=== PATIENT | male | born 1985 | race Caucasian/White ===

== ENCOUNTER 2019-06-23 22:38 | Emergency (ER) | payer MEDICAID, OTHER, SELFPAY ==
[~2019-06-23] VITALS: Ht 188 cm; Wt 98.6 kg
[2019-06-23 22:44] VITALS: BP 145/87
--- NOTE | 2019-06-23 22:53 | NUR ---
PT WITH LESIONS TO VARIOUS PARTS OF THE BODY FOR VARIOUS AMOUNTS OF TIME.
--- NOTE | 2019-06-23 23:01 | NUR ---
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 PT HAS MULTIPLE OPEN WOUNDS. CONTACT PRECAUTIONS IN PLACE.
[2019-06-23] MEDS ORDERED: DIPH,PERTUSS(ACELL),TET VAC/PF 0.5 ML IM-VACC ONE (23:30)
[2019-06-23] MEDS ORDERED: LIDOCAINE-MPF 1%, 5ML ONE (23:47)
[2019-06-23] MEDS ORDERED: NEOSPORIN OINT. PKT 1 PACKET ONE (23:55)
[2019-06-24] MEDS ORDERED: IBUPROFEN 600 MG TABLET PO ONE
[2019-06-24] MEDS ORDERED: LIDOCAINE-MPF 1%, 5ML INFIL ONE
[2019-06-24] MEDS ORDERED: DIPH,PERTUSS(ACELL),TET VAC/PF 0.5 ML IM-VACC ONE (00:13)
== END 2019-06-24 00:18 | disposition home or self-care (01) ==
LOC: ED 06-24 00:10
DX: L02.415 Cutaneous abscess of right lower limb (principal); B35.4 Tinea corporis; L72.3 Sebaceous cyst; F15.10 Other stimulant abuse, uncomplicated; F17.210 Nicotine dependence, cigarettes, uncomplicated; F11.10 Opioid abuse, uncomplicated; Y90.9 Presence of alcohol in blood, level not specified
CPT/HCPCS: 10060; 90471; 90715; 99283

== ENCOUNTER 2019-11-23 16:53 | Emergency (ER) | payer MEDICAID, OTHER ==
[~2019-11-23] VITALS: Ht 188 cm; Wt 97.1 kg
[2019-11-23 16:57] VITALS: BP 108/65
--- NOTE | 2019-11-23 19:16 | NUR ---
GERSONX1
--- NOTE | 2019-11-23 20:10 | NUR ---
NILX2
--- NOTE | 2019-11-23 20:19 | NUR ---
not in lobby
== END 2019-11-23 20:31 | disposition left against medical advice (07) ==
LOC: ED 17:00
DX: R07.89 Other chest pain (principal); Z53.21 Procedure and treatment not carried out due to patient leaving prior to being seen by health care provider
CPT/HCPCS: 93005; 99283

== ENCOUNTER 2020-01-12 14:12 | Emergency (ER) | payer OTHER ==
[~2020-01-12] VITALS: Ht 188 cm; Wt 96.1 kg
[2020-01-12] MEDS ORDERED: VANCOMYCIN PER PHARMACY MC ONE (15:00)
[2020-01-12] MEDS ORDERED: SODIUM CHLORIDE 0.9% 1,000ML IVBOLUS ONE (15:00)
[2020-01-12] MEDS ORDERED: VANCOMYCIN 2,400 MG in SODIUM CHLORIDE 0.9% 500 ML IV ONE (15:00)
[2020-01-12 15:13] LABS: BASOPHILS # (AUTO) 0.07 x10^3/uL (0-0.1); BASOPHILS % (AUTO) 1 % (0-1); EOSINOPHILS # (AUTO) 0.12 x10^3/uL (0-0.4); EOSINOPHILS % (AUTO) 1 % (1-7); LYMPHOCYTES # (AUTO) 1.26 x10^3/uL (1-3.4); LYMPHOCYTES % (AUTO) 8 % (22-44); MD NO; MEAN CORPUSCULAR HEMOGLOBIN 31.3 pg (27.5-34.5); MEAN CORPUSCULAR HGB CONC 34.4 g/dL (33.2-36.2); MEAN CORPUSCULAR VOLUME 91.1 fL (81-97); MEAN PLATELET VOLUME 7.2 fL (7.4-10.4); MONOCYTES # (AUTO) 0.88 x10^3/uL (0.2-0.8); MONOCYTES % (AUTO) 6 % (2-9); NEUTROPHILS # (AUTO) 12.64 x10^3/uL (1.8-6.8); NEUTROPHILS % (AUTO) 85 % (42-75); PLATELET COUNT 239 x10^3/uL (130-400); RED BLOOD COUNT 4.71 x10^6/uL (4.38-5.82); RED CELL DISTRIBUTION WIDTH 13.6 % (9.4-14.8)
[2020-01-12 15:20] LABS: ALBUMIN 3.3 g/dL (3.4-5.0); ANION GAP 13 mmol/L (5-15); CALCIUM 8.4 mg/dL (8.5-10.1); CHLORIDE 105 mmol/L (98-107)
[2020-01-12 15:23] LABS: ALANINE AMINOTRANSFERASE 47 U/L (12-78); ALKALINE PHOSPHATASE 77 U/L (45-117); BILIRUBIN,TOTAL 0.6 mg/dL (0.2-1.0); CREATININE 0.91 mg/dL (0.7-1.3); TOTAL PROTEIN 7.1 g/dL (6.4-8.2)
[2020-01-12 15:32] VITALS: BP 130/75
--- NOTE | 2020-01-12 15:36 | NUR ---
PT MEDICATED ORDRED WITH REINIERO. WAITING FOR LANBS PT AWARE [facility] TAKES 2 HOURS TO INFUSE. PT REQUESTING FOOD AND DR. LINDSAY AWARE.
--- NOTE | 2020-01-12 16:20 | NUR ---
PT GIVEN MEATRAY. WAITING FOR [facility] TO INFUSE THEN PT WILL BE DISCHARGED HOME.
--- NOTE | 2020-01-12 16:51 | NUR ---
REPORT TO [facility].
--- NOTE | 2020-01-12 17:17 | NUR ---
PT WAS NOT IN ROOM WHEN AIRPLANE TESTER WENT TO CHECK ON PT, NO SIGN OF IV CATH IN ROOM. PT MIGHT HAVE LEFT ER WITHOUT BEING DISCHARGED WITH IV IN PLACE. AIRPLANE TESTER WAS TOLD PT HAS HX OF DRUG USE. [facility] NOTIFIED VIA PHONE.
== END 2020-01-12 17:26 | disposition left against medical advice (07) ==
LOC: ED 15:00
DX: L03.114 Cellulitis of left upper limb (principal)
CPT/HCPCS: 36415; 80053; 83605; 85025; 87040; 96365; 99284; J3370; J7030; J7040

== ENCOUNTER 2020-01-13 11:21 | Inpatient (IN) | payer OTHER ==
[~2020-01-13] VITALS: Ht 188 cm; Wt 100.5 kg
[2020-01-13] MEDS ORDERED: PIPERACILLIN/TAZO/PMX 3.375GM 50 ML ONE (11:53)
[2020-01-13] MEDS ORDERED: PIPERACILLIN/TAZO/PMX 3.375GM 50 ML IV ONE (12:00)
[2020-01-13] MEDS ORDERED: VANCOMYCIN PER PHARMACY MC ONE (12:00)
[2020-01-13 12:17] LABS: BASOPHILS # (AUTO) 0.16 x10^3/uL (0-0.1); BASOPHILS % (AUTO) 1 % (0-1); EOSINOPHILS # (AUTO) 0.09 x10^3/uL (0-0.4); EOSINOPHILS % (AUTO) 1 % (1-7); LYMPHOCYTES # (AUTO) 1.79 x10^3/uL (1-3.4); LYMPHOCYTES % (AUTO) 14 % (22-44); MD NO; MEAN CORPUSCULAR HEMOGLOBIN 30.9 pg (27.5-34.5); MEAN CORPUSCULAR HGB CONC 33.5 g/dL (33.2-36.2); MEAN CORPUSCULAR VOLUME 92.2 fL (81-97); MEAN PLATELET VOLUME 7.6 fL (7.4-10.4); MONOCYTES % (AUTO) 8 % (2-9); NEUTROPHILS # (AUTO) 9.56 x10^3/uL (1.8-6.8); NEUTROPHILS % (AUTO) 76 % (42-75); PLATELET COUNT 257 x10^3/uL (130-400); RED BLOOD COUNT 4.96 x10^6/uL (4.38-5.82); RED CELL DISTRIBUTION WIDTH 13.7 % (9.4-14.8)
[2020-01-13 12:25] LABS: ANION GAP 9 mmol/L (5-15); CALCIUM 8.9 mg/dL (8.5-10.1); CHLORIDE 109 mmol/L (98-107); CREATININE 1.09 mg/dL (0.7-1.3)
[2020-01-13 12:26] LABS: ALBUMIN 3.7 g/dL (3.4-5.0)
[2020-01-13] MEDS ORDERED: VANCOMYCIN 2,400 MG in SODIUM CHLORIDE 0.9% 500 ML IV ONE (12:30)
--- NOTE | 2020-01-13 13:23 | NUR ---
[facility] TELEPHONE HAND-OFF REPORT GIVEN TO DONY BLACK. PT READY TO GO TO HOSPITAL ROOM.
[2020-01-13] MEDS ORDERED: SODIUM CHLORIDE FLUSH 10ML SYR IVF PRN (14:00)
[2020-01-13 14:17] VITALS: BP 130/71
[2020-01-13] MEDS ORDERED: MORPHINE SULFATE 4 MG/ML, 1ML IVPush PRN (15:30)
[2020-01-13] MEDS ORDERED: VANCOMYCIN PER PHARMACY MC PRN (15:30)
[2020-01-13] MEDS ORDERED: POLYETHYLENE GLYCOL 17 GM PACKET PO PRN (16:00)
[2020-01-13] MEDS ORDERED: ACETAMINOPHEN 325 MG TABLET PO PRN (16:00)
[2020-01-13] MEDS ORDERED: PROMETHAZINE 25 MG/ML, 1ML IM PRN (16:00)
[2020-01-13] MEDS ORDERED: ONDANSETRON 2MG/ML, 2ML IVPush PRN (16:00)
[2020-01-13] MEDS ORDERED: ENOXAPARIN 40 MG/0.4 ML SQ SCH (16:00)
[2020-01-13] MEDS ORDERED: GABAPENTIN 300 MG CAPSULE PO PRN (16:00)
[2020-01-13] MEDS ORDERED: THIAMINE 100 MG in SODIUM CHLORIDE 0.9% 50 ML IV SCH (16:00)
[2020-01-13] MEDS ORDERED: NICOTINE 21 MG/24 HR PATCH.TD24 TD SCH (16:00)
[2020-01-13] MEDS: OXYcodone IR 5MG TABLET PO PRN (16:53)
[2020-01-13] MEDS: SODIUM CHLORIDE 0.9% 1,000 ML IV SCH (16:53)
[2020-01-13] MEDS ORDERED: PHARMACOKINETIC MONITORING MC PRN (17:00)
[2020-01-13] MEDS: LORazepam 2 MG/ML, 1ML IVPush PRN (18:44)
[2020-01-13] MEDS ORDERED: OMNIPAQUE 350 MG/ML, 100ML BOTTLE ONE (18:48)
[2020-01-13 19:02] VITALS: BP 139/90
[2020-01-13] MEDS: PIPERACILLIN/TAZO/PMX 3.375GM 50 ML IV SCH (20:19)
[2020-01-13] MEDS: LACTULOSE 10 GM/15 ML UDC PO SCH (20:19)
[2020-01-13] MEDS: MORPHINE SULFATE 4 MG/ML, 1ML IVPush PRN (20:29)
[2020-01-14] MEDS: VANCOMYCIN 2,000 MG in SODIUM CHLORIDE 0.9% 500 ML IV SCH ×2 (00:07→12:16)
[2020-01-14 00:24] VITALS: BP 127/73
[2020-01-14] MEDS: MORPHINE SULFATE 4 MG/ML, 1ML IVPush PRN (01:30)
[2020-01-14] MEDS: PIPERACILLIN/TAZO/PMX 3.375GM 50 ML IV SCH ×3 (02:28→14:00)
[2020-01-14] MEDS: SODIUM CHLORIDE 0.9% 1,000 ML IV SCH ×2 (03:22→09:04)
[2020-01-14] MEDS: LORazepam 2 MG/ML, 1ML IVPush PRN (04:06)
[2020-01-14] MEDS: OXYcodone IR 5MG TABLET PO PRN ×2 (04:07→08:59)
[2020-01-14 06:21] LABS: ALBUMIN 2.6 g/dL (3.4-5.0); ANION GAP 5 mmol/L (5-15); CALCIUM 8.3 mg/dL (8.5-10.1); CHLORIDE 108 mmol/L (98-107)
[2020-01-14 06:26] LABS: ALANINE AMINOTRANSFERASE 40 U/L (12-78); ALKALINE PHOSPHATASE 76 U/L (45-117); BASOPHILS # (AUTO) 0.03 x10^3/uL (0-0.1); BASOPHILS % (AUTO) 0 % (0-1); BILIRUBIN,TOTAL 0.6 mg/dL (0.2-1.0); CREATININE 1.01 mg/dL (0.7-1.3); EOSINOPHILS # (AUTO) 0.18 x10^3/uL (0-0.4); EOSINOPHILS % (AUTO) 2 % (1-7); LYMPHOCYTES # (AUTO) 1.75 x10^3/uL (1-3.4); LYMPHOCYTES % (AUTO) 18 % (22-44); MD NO; MEAN CORPUSCULAR HEMOGLOBIN 31.3 pg (27.5-34.5); MEAN CORPUSCULAR HGB CONC 33.5 g/dL (33.2-36.2); MEAN CORPUSCULAR VOLUME 93.3 fL (81-97); MEAN PLATELET VOLUME 7.5 fL (7.4-10.4); MONOCYTES # (AUTO) 0.75 x10^3/uL (0.2-0.8); MONOCYTES % (AUTO) 8 % (2-9); NEUTROPHILS # (AUTO) 6.92 x10^3/uL (1.8-6.8); NEUTROPHILS % (AUTO) 72 % (42-75); PLATELET COUNT 230 x10^3/uL (130-400); RED BLOOD COUNT 4.67 x10^6/uL (4.38-5.82); RED CELL DISTRIBUTION WIDTH 13.4 % (9.4-14.8); TOTAL PROTEIN 6.3 g/dL (6.4-8.2)
[2020-01-14 08:32] VITALS: BP 133/79
[2020-01-14] MEDS: LACTULOSE 10 GM/15 ML UDC PO SCH (09:00)
[2020-01-14] MEDS ORDERED: SENNA/DOCUSATE TABLET PO SCH (09:00)
[2020-01-14] MEDS ORDERED: FOLIC ACID 1 MG TABLET PO SCH (09:00)
[2020-01-14] MEDS ORDERED: MULTIVITAMIN 1 TABLET PO SCH (09:00)
[2020-01-14 14:00] VITALS: BP 153/94
[2020-01-14] MEDS ORDERED: DOXY100T PO (15:08)
[2020-01-14] MEDS ORDERED: AMOX1TAB64 PO (15:09)
== END 2020-01-14 15:00 | disposition left against medical advice (07) | DRG 872 ==
LOC: SUATTDRO 12:52 → ED 13:15 → EDIP 13:30 → 3N 14:01
PROVIDERS: ADMIT Internal Medicine; ATTEND Hospitalist
DX: A41.9 Sepsis, unspecified organism (principal); L03.114 Cellulitis of left upper limb; L03.116 Cellulitis of left lower limb; F10.239 Alcohol dependence with withdrawal, unspecified; I10 Essential (primary) hypertension; F17.210 Nicotine dependence, cigarettes, uncomplicated; F19.10 Other psychoactive substance abuse, uncomplicated; Z53.29 Procedure and treatment not carried out because of patient's decision for other reasons; Z91.19 Patient's noncompliance with other medical treatment and regimen; Z88.6 Allergy status to analgesic agent; Z88.8 Allergy status to other drugs, medicaments and biological substances
CPT/HCPCS: 36415; 80048; 80053; 82040; 83735; 84100; 85025; 96365; 96375; G0378; J1650; J2543; J3370; J3411; Q9967; J2060; J2270; J7030; J7040